=== PATIENT | male | born 1955 ===

== ENCOUNTER 2023-11-13 07:06 | Day surgery (SDC) | payer OTHER ==
[2023-11-13] MEDS ORDERED: fentaNYL CITRATE 50 MCG/ML AMPUL IV ONE (11:00)
[2023-11-13] MEDS ORDERED: DIPHENHYDRAMINE HCL 50 MG/ML VIAL 1ML IV ONE (11:00)
[2023-11-13] MEDS ORDERED: MIDAZOLAM HCL 2 MG/2 ML VIAL IV ONE (11:00)
== END 2023-11-13 12:00 | disposition home or self-care (01) ==
LOC: AMB-ENDOS 07:06
PROVIDERS: ATTEND Surgery
DX: D12.2 Benign neoplasm of ascending colon (principal); D12.3 Benign neoplasm of transverse colon; D12.8 Benign neoplasm of rectum; D12.5 Benign neoplasm of sigmoid colon; K63.5 Polyp of colon; K64.8 Other hemorrhoids

== ENCOUNTER 2023-12-25 10:45 | Inpatient (IN) | payer OTHER ==
[~2023-12-25] VITALS: Ht 172.7 cm; Wt 108.9 kg
[2023-12-25] MEDS ORDERED: SIMVASTATIN10 MG PO (11:07)
[2023-12-25] MEDS ORDERED: COZAAR25 MG PO (11:07)
[2023-12-25 13:09] VITALS: BP 136/72
[2024-01-02] MEDS ORDERED: CEFTRIAXONE SODIUM 2,000 MG VIAL ONE (10:27)
[2024-01-02] MEDS ORDERED: METRONIDAZOLE/SODIUM CHLORIDE 500 MG/100 ML PIGGYBACK IV ONE ×3 (10:27→16:18)
[2024-01-02] MEDS ORDERED: LIDOCAINE HCL 1%/EPINEPHRINE 20ML VIAL IJ ONE (11:10)
[2024-01-02] MEDS ORDERED: BUPIVACAINE HCL/MPF 0.5% 30ML VIAL ONE (11:10)
[2024-01-02] MEDS ORDERED: VISTASEAL DUAL APPICATOR 1 EACH APPL TOP ONE ×2 (12:43→13:00)
[2024-01-02] MEDS ORDERED: THROMBIN,HU/FIBRINOGEN/CALCIUM 10 ML SYRINGE TOP ONE ×2 (12:44→13:00)
[2024-01-02] MEDS ORDERED: CEFTRIAXONE SODIUM 2,000 MG VIAL IV ONE (13:00)
[2024-01-02] MEDS ORDERED: RINGERS SOLUTION,LACTATED 1,000 ML IV SCH (13:30)
[2024-01-02] MEDS ORDERED: ONDANSETRON HCL 2 MG/ML VIAL IV PRN (13:30)
[2024-01-02] MEDS ORDERED: MORPHINE SULFATE 4 MG/ML CARTRIDGE IV PRN (13:30)
[2024-01-02] MEDS ORDERED: OxyCODONE HCL 5 MG TABLET (ROXICODONE) PO PRN (13:30)
[2024-01-02] MEDS ORDERED: SUGAMMADEX SODIUM 200 MG/2 ML VIAL IV ONE (13:36)
[2024-01-02] MEDS ORDERED: MORPHINE SULFATE 4 MG/ML VIAL IV ONE ×2 (14:15→14:45)
[2024-01-02] MEDS ORDERED: HYOSCYAMINE SULFATE 0.125 MG TAB.SUBL SL SCH (17:00)
[2024-01-02] MEDS ORDERED: LACTOBACILLUS ACIDOPHILUS 1 CAP CAP PO SCH (17:00)
[2024-01-02] MEDS ORDERED: TAMSULOSIN HCL 0.4 MG CAP PO SCH (17:00)
[2024-01-02] MEDS ORDERED: METRONIDAZOLE/SODIUM CHLORIDE 500 MG/100 ML PIGGYBACK IV SCH (17:00)
[2024-01-02] MEDS ORDERED: GABAPENTIN 300 MG CAPSULE PO SCH (17:00)
[2024-01-02] MEDS ORDERED: ACETAMINOPHEN 500 MG GEL..CAP PO SCH (18:00)
[2024-01-02 18:04] VITALS: BP 136/72; O2SAT 93
[2024-01-02 18:57] VITALS: O2SAT 96
[2024-01-02 20:34] VITALS: O2SAT 94
[2024-01-02 20:52] LABS: HEMATOCRIT 45.5 % (39.0-48.0); HEMOGLOBIN 15.4 g/dL (13-16.00); MEAN CELL VOLUME 95.4 fL (80.0-100.00); MEAN CORPUSCULAR HEMOGLOBIN 32.3 pg (27.00-32.0); MEAN CORPUSCULAR HGB CONC 33.8 g/dl (32.0-36.0); PLATELET COUNT 225 K/uL (150-450); RED BLOOD COUNT 4.77 M/uL (4.00-6.00); RED CELL DISTRIBUTION WIDTH 13.7 % (11.5-14.5)
[2024-01-02] MEDS ORDERED: FAMOTIDINE/PF 20 MG/2 ML VIAL IV PUSH SCH (21:00)
[2024-01-02] MEDS ORDERED: CIPROFLOXACIN IN 5 % DEXTROSE 400 MG/200 ML PIGGYBAG IV SCH (21:00)
[2024-01-03] VITALS (8 sets, daily range): BP systolic 144–184; BP diastolic 70–85; O2SAT 94–98
[2024-01-03 07:42] LABS: HEMATOCRIT 42.8 % (39.0-48.0); HEMOGLOBIN 14.8 g/dL (13-16.00); MEAN CELL VOLUME 94.7 fL (80.0-100.00); MEAN CORPUSCULAR HEMOGLOBIN 32.8 pg (27.00-32.0); MEAN CORPUSCULAR HGB CONC 34.6 g/dl (32.0-36.0); PLATELET COUNT 206 K/uL (150-450); RED BLOOD COUNT 4.51 M/uL (4.00-6.00); RED CELL DISTRIBUTION WIDTH 13.5 % (11.5-14.5)
[2024-01-03 07:49] LABS: ALBUMIN 3.3 gm/dL (3.4-5.0); CALCIUM 8.7 mg/dL (8.5-10.1); CREATININE SERUM 0.97 mg/dL (0.70-1.30); GFR 77.43; MAGNESIUM 1.8 mg/dL (1.8-2.4); PHOSPHOROUS 3.3 mg/dL (2.5-4.9); POTASSIUM 4.53 mEq/L (3.5-5.1)
[2024-01-03 07:50] LABS: CKMB 5.7 NG/ML (0.5-3.6)
[2024-01-03] MEDS ORDERED: ENOXAPARIN SODIUM 40 MG/0.4 ML SYRINGE SUBCUTANEO SCH (17:00)
[2024-01-04 00:52] VITALS: BP 128/75; O2SAT 94
[2024-01-04 08:00] VITALS: BP 148/69
[2024-01-04] MEDS ORDERED: ENOXAPARIN SODIUM 40 MG/0.4 ML SYRINGE SUBCUTANEO SCH (09:00)
[2024-01-04 16:00] VITALS: BP 144/73; O2SAT 94
[2024-01-05 00:27] VITALS: BP 113/71; O2SAT 94
[2024-01-05 06:18] LABS: HEMATOCRIT 34.6 % (39.0-48.0); HEMOGLOBIN 11.8 g/dL (13-16.00); MEAN CELL VOLUME 95.6 fL (80.0-100.00); MEAN CORPUSCULAR HEMOGLOBIN 32.8 pg (27.00-32.0); MEAN CORPUSCULAR HGB CONC 34.3 g/dl (32.0-36.0); PLATELET COUNT 192 K/uL (150-450); RED BLOOD COUNT 3.62 M/uL (4.00-6.00); RED CELL DISTRIBUTION WIDTH 13.4 % (11.5-14.5)
[2024-01-05 07:18] LABS: ALBUMIN 2.6 gm/dL (3.4-5.0); CALCIUM 8.7 mg/dL (8.5-10.1); CREATININE SERUM 0.79 mg/dL (0.70-1.30); GFR 98.13; MAGNESIUM 2.1 mg/dL (1.8-2.4); POTASSIUM 3.84 mEq/L (3.5-5.1)
[2024-01-05 07:49] LABS: PHOSPHOROUS 1.9 mg/dL (2.5-4.9)
[2024-01-05 08:00] VITALS: BP 153/73; O2SAT 99
[2024-01-05] MEDS ORDERED: POTASSIUM PHOS,M-BASIC-D-BASIC 3 MM/ML VIAL IV ONE (11:00)
[2024-01-05 11:02] LABS: ABG PH 7.449 (7.35-7.45); ABG PO2 82.2 mmHg (80-100); ABG pCO2 40.8 mmHg (35-45); BASE EXCESS 3.4 mmol/l; BICARBONATE 27.6 mmol/l (23-25); SaO2 96.7 %; Tco2 28.9 mmol/l
[2024-01-05] MEDS ORDERED: POTASSIUM PHOS,M-BASIC-D-BASIC 18 MM in 0.9 % SODIUM CHLORIDE 250 ML IV NR (11:45)
[2024-01-05 12:49] LABS: o2 28 %
[2024-01-05 12:50] LABS: allen test SATISFACTORY; puncture site RADIAL RIGHT
[2024-01-05] MEDS ORDERED: LEVALBUTEROL HCL 1.25 MG/3 ML SOLUTION IH SCH (13:00)
[2024-01-05 16:46] VITALS: BP 150/74; O2SAT 96
[2024-01-05] MEDS ORDERED: ENALAPRILAT DIHYDRATE 1.25 MG/ML VIAL IV PRN (17:45)
[2024-01-06] VITALS: BP 157/69; O2SAT 95
[2024-01-06 07:57] VITALS: BP 122/74; O2SAT 95
[2024-01-06 16:38] VITALS: BP 133/72; O2SAT 98
[2024-01-07] VITALS: BP 136/72; O2SAT 94
[2024-01-07 08:00] VITALS: BP 151/72; O2SAT 95
[2024-01-07] MEDS ORDERED: HYOSCYAMINE0.125 M1 SL (13:46)
[2024-01-07] MEDS ORDERED: INTESTINEX680 M1 PO (13:47)
== END 2024-01-07 17:28 | disposition home or self-care (01) | DRG 331 ==
LOC: O/R 01-02 05:25 → SURH 01-02 05:25 → O/R 01-02 10:01 → SURH 01-02 17:57
PROVIDERS: Internal Medicine; Surgery; ADMIT Surgery; ATTEND Surgery
PROC: 07BC4ZX Excision of Pelvis Lymphatic, Percutaneous Endoscopic Approach, Diagnostic (ICD-10-PCS; 2024-01-02)
PROC: 0DNW4ZZ Release Peritoneum, Percutaneous Endoscopic Approach (ICD-10-PCS; 2024-01-02)
PROC: 4A12X4Z Monitoring of Cardiac Electrical Activity, External Approach (ICD-10-PCS; 2024-01-02)
PROC: 0DTF4ZZ Resection of Right Large Intestine, Percutaneous Endoscopic Approach (ICD-10-PCS; principal; 2024-01-02 14:30)
DX: D12.3 Benign neoplasm of transverse colon (principal); D12.2 Benign neoplasm of ascending colon; K63.5 Polyp of colon; D12.5 Benign neoplasm of sigmoid colon; K66.0 Peritoneal adhesions (postprocedural) (postinfection); I10 Essential (primary) hypertension